=== PATIENT | male | born 1950 | race Caucasian/White ===

== ENCOUNTER → 2017-01-08 | Outpatient (CLI) | payer OTHER, MEDICARE ==
[2017-01-08 17:20] LABS: HEMOGLOBIN A1C 8.03 % (4.2-6.0); MEAN BLOOD GLUCOSE (CALC) 181.399 mg/dL
== END ==
LOC: MOB LAB 16:01
DX: E11.9 Type 2 diabetes mellitus without complications (principal); E29.1 Testicular hypofunction; I67.9 Cerebrovascular disease, unspecified; E55.9 Vitamin D deficiency, unspecified; G47.33 Obstructive sleep apnea (adult) (pediatric); E78.2 Mixed hyperlipidemia; I10 Essential (primary) hypertension; Z12.5 Encounter for screening for malignant neoplasm of prostate
CPT/HCPCS: 36415; 82306; 83036; 84403; G0103; G0463

== ENCOUNTER → 2017-04-22 | Outpatient (CLI) | payer OTHER, MEDICARE | LOC: MMPC 11:11 | DX: E29.1 Testicular hypofunction (principal) | CPT/HCPCS: G0463; J1071 ==

== ENCOUNTER → 2017-05-06 | Outpatient (CLI) | payer OTHER, MEDICARE | LOC: MMPC 11:11 | DX: E29.1 Testicular hypofunction (principal) | CPT/HCPCS: G0463; J1071 ==

== ENCOUNTER → 2017-05-21 | Outpatient (CLI) | payer OTHER, MEDICARE | LOC: MMPC 11:11 | DX: E29.1 Testicular hypofunction (principal) | CPT/HCPCS: G0463; J1071 ==

== ENCOUNTER → 2017-06-06 | Outpatient (CLI) | payer OTHER, MEDICARE | LOC: MMPC 11:11 | DX: E11.42 Type 2 diabetes mellitus with diabetic polyneuropathy (principal); I67.9 Cerebrovascular disease, unspecified; E78.2 Mixed hyperlipidemia; G47.33 Obstructive sleep apnea (adult) (pediatric); I10 Essential (primary) hypertension; F34.1 Dysthymic disorder; E66.09 Other obesity due to excess calories; E29.1 Testicular hypofunction | CPT/HCPCS: 99213; G0463 ==

== ENCOUNTER → 2017-06-10 | Outpatient (CLI) | payer OTHER, MEDICARE | LOC: MMPC 11:11 | DX: E29.1 Testicular hypofunction (principal) | CPT/HCPCS: G0463; J1071 ==

== ENCOUNTER → 2017-06-24 | Outpatient (CLI) | payer OTHER, MEDICARE | LOC: MMPC 11:11 | DX: E29.1 Testicular hypofunction (principal) | CPT/HCPCS: G0463; J1071 ==

== ENCOUNTER 2017-06-29 13:34 | Inpatient (IN) | payer OTHER, MEDICARE ==
[2017-06-29] MEDS ORDERED: Sodium Chloride 0.9% 1,000 ML PRIMARY IV ONE (13:40)
[2017-06-29] MEDS ORDERED: NORMAL SALINE 10 ML SYRINGE FLUSH IVP PRN ×2 (13:40→16:38)
[2017-06-29] MEDS ORDERED: ASPIRIN 81 MG (BABY) CHEWABLE TABLET PO ONE (13:40)
--- NOTE | 2017-06-29 13:43 | EKG ---
[address] [address] Measurements Intervals [place] Rate: 120 P: TN: 0 QRS: 67 QRSD: 81 T: 3 QT: 285 QTc: 356 Interpretive Statements ATRIAL FIBRILLATION WITH RAPID VENTRICULAR RESPONSE WITH ABERRANT CONDUCTION OR VENTRICULAR PREMATURE COMPLEXES NONSPECIFIC T-WAVE ABNORMALITY ABNORMAL RHYTHM ECG No previous ECG available for comparison Electronically Signed On 07-01-17 09:00:45 MDT by Darius Oconnell MD [email or web address]
[2017-06-29 14:04] LABS: BLOOD UREA NITROGEN 19 mg/dL (7-22); BUN/CREATININE RATIO 21.11 (6-20); EST GLOMERULAR FILTRATION > 60 (>60 ml/min/1.73m(2)); SERUM ALBUMIN 4.4 g/dL (3.5-4.8)
[2017-06-29 14:16] LABS: CREATINE KINASE MB 2.83 NG/ML (0.00-5.00)
[2017-06-29 14:17] LABS: TROPONIN I < 0.012 ng/mL (< 0.040)
[2017-06-29 14:26] LABS: BASOPHILS % (AUTO) 0.6 % (0-1); EOSINOPHILS % (AUTO) 1.3 % (0-8); HEMATOCRIT 51.8 % (42.0-52.0); MEAN CORPUSCULAR HEMOGLOBIN 31.6 PG (27-31); MEAN CORPUSCULAR HGB CONC 34.7 g/dL (33-37); MEAN CORPUSCULAR VOLUME 91 FL (80-90); MEAN PLATELET VOLUME 10.3 FL (7.4-12.2); MONOCYTES % (AUTO) 8.6 % (5-15); NEUTROPHILS % (AUTO) 72.4 % (50-80); RED BLOOD COUNT 5.69 10^6/uL (4.70-6.10)
[2017-06-29 14:27] LABS: BASOPHILS # (AUTO) 0.07 10*3/UL; EOSINOPHILS # (AUTO) 0.15 10*3/UL; LYMPHOCYTES # (AUTO) 1.96 10*3/uL; MONOCYTES # (AUTO) 1.01 10*3/UL (0.3-0.8); NEUTROPHILS # (AUTO) 8.46 10*3/UL; PLATELET MORPHOLOGY COMMENT NORMAL MORPHOLOGY (NORM); RBC MORPHOLOGY COMMENT NORMAL MORPHOLOGY (NORM); WBC MORPHOLOGY COMMENT SEE COMMENTS (NORM)
--- NOTE | 2017-06-29 15:18 | PDOC ---
Chest Pain HPI - General Chief Complaint: Chest Pain Stated Complaint: CHEST PAIN Date Seen by Provider: 06/29/17 Time Seen by Provider: 13:36 Source: Patient, Spouse Exam Limitations: POSITIVE: No limitations Treatment Prior to Arrival: REPORTS: None Nurse's Notes Reviewed & Considered: Yes - History of Present Illness Initial Comments: The patient is a 67-year-old male. He states that last night, around 8 PM, he developed "chest pressure". He states his chest pressure was not "bad". Onset of this was while he was driving. He slept fairly well through the night. Shortly after awakening he developed a sensation of "weakness and feeling like passing out". He also felt short of breath and sensed that his heart was beating "real fast". He also had some mild associated chest discomfort upon awakening. Body Location Affected: REPORTS: Chest Timing: REPORTS: Abrupt Duration: <24 hours Severity: Moderate Persistent/Worse since (date): 06/29/17 Persistent/Worse since (time): 06:00 Context: REPORTS: Rest Quality: REPORTS: Pressure Radiation: REPORTS: None Associated Symptoms: REPORTS: Shortness of Breath, Palpitations, Weakness Modifying Factors: improves with: None Reported Similar Symptoms Previously: No Recently seen/treated/hospitalized: No Any Prior Injuries Related to Current Complaint?: No - Patient Home Medications Home Medications: Home Medications Chlorthalidone 25 mg PO DAILY tab 06/21/15 Clopidogrel Bisulfate [Clopidogrel] 1 tab PO DAILY tab 06/21/15 Losartan Potassium 1 tab PO BID tab 06/21/15 Metformin HCl 1 tab PO BID tab 06/21/15 Blood Sugar Diagnostic [Precision Pcx Plus] 1 each IN TIDPC strip 09/04/16 Escitalopram Oxalate 1 tab PO DAILY tab 09/04/16 Lancets 1 each MC TIDPC each 09/04/16 Aspirin [Aspirin Ec] 1 tab PO QD #90 tab 10/09/16 Atorvastatin Calcium 1 tab PO QD #90 tab 10/09/16 Testosterone Cypionate 200 mg IM ASDIR #2 ml 01/18/17 Glipizide 1 tab PO QD #90 tab 04/08/17 - Patient Allergies Allergies/Adverse Reactions: Allergies Allergy/AdvReac Type Severity Reaction Status Date / Time No Known Allergies Allergy Verified 06/29/17 13:39 Past Medical History - heen HEENT History: Denies History Cardiovascular History: Denies History Additional Cardiovasular History: STATES HIS HEART HAS ALWAYS JUMPED AROUND Respiratory History: Denies History Gastrointestinal History: Denies History Genitourinary History: Denies History Endocrine History: Type 2 Diabetes (insulin) Average AM Blood Sugar: 130 Musculoskeletal History: Denies History Prosthesis or Implant: No Additional Musculoskeletal History: FUSIONS Neurological History: TIA Additional Neurological History: THATS WHY THEY PUT ME ON PLAVIX Blood Disorders: Denies History Psychiatric History: Depression History of Sexually Transmitted Diseases: No Male Reproductive History: Denies History Cancer History: Denies History In Past Year Been Physically Harmed or Verbally Threatened: No History of MDRO: No History of Other Communicable Diseases: No Tobacco Use: Never Smoker Alcohol Use: Rarely Type of alcohol normally used: Beer Substance Use Type: None Previous Surgical History: Yes Type / Date of Surgery: GB, APPY, BACK FUSIONS Anesthesia Reactions: No Malignant Hyperthermia: No Family History of Malignant Hyperthermia: No Significant Family History: Diabetes, Hypertension Past Medical History Reviewed: Reviewed - No Changes ROS - Limitations ROS Limitations: No Limitations Constitution: REPORTS: Denies Symptoms Cardiovascular: REPORTS: Chest Pain, Heart Racing, Heart Palpitations Respiratory: REPORTS: Denies Resp Symptoms Neurological: REPORTS: Denies Neuro Symptoms Gastrointestinal: REPORTS: Denies GI Symptoms Endocrine: REPORTS: Denies Symptoms Musculoskeletal: REPORTS: Denies MS Symptoms Genitourinary: REPORTS: Denies Symptoms Eyes: REPORTS: Denies Symptoms ENT: REPORTS: Denies Symptoms Skin: REPORTS: Denies Skin Symptoms Lympathic: REPORTS: Denies Lympathic Symptoms Immunologic: POSITIVE: Denies Symptoms Psychiatric: POSITIVE: Denies Psych Symptoms Chest Pain PE - General Appearance General Appearance: REPORTS: Alert, Cooperative, No Acute Distress, No Evidence of Trauma - HEENT HEENT: POSITIVE: Head Inspection Nml, Eyes Inspection Nml, Ears Inspection Nml, Nose Inspection Nml, Oral/Dental Inspect. Nml, Pharynx Inspect. Nml, PERRL, EOMI - Neck Neck: REPORTS: Normal Inspection, No Carotid Bruit - Respiratory Respiratory: REPORTS: No Respiratory Distress, Breath Sounds Normal, Chest Non- Tender - Cardiovascular Cardiovascular: REPORTS: Heart Sounds Normal, Equal Pulses, Strong Pulses, No Murmur, No Gallop, No Friction Rub, No JVD, Irregularly Irreg Rhythm, Tachycardia Peripheral Pulses: Radial (R): 2+, Radial (L): 2+ - Abdomen Abdomen: Soft: (All Quadrants), Normal Bowel Sounds: (All Quadrants), Denies Tenderness: (All Quadrants), No Splenomegaly: (All Quadrants), No Hepatomegaly: (All Quadrants), No Guarding: (All Quadrants), No Rebound: (All Quadrants), No Palpable Pulse: (All Quadrants), No Palpabale Mass: (All Quadrants), No Distention: (All Quadrants), No Rigidity: (All Quadrants) - Skin Skin: REPORTS: Intact, Normal For Race, Warm, Dry, No Rash - Extremities Extremity: Non-Tender: (All Extremities), Normal ROM: (All Extremities), Normal Inspection: (All Extremities) - Neurological / Psychological Neurological: POSITIVE: Oriented X3, 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 Chest Pain Progress - Results Reviewed by me Xrays/CTs/US Reviewed by me: Yes Discussed with Radiologist: No Radiology Findings: PA chest shows no definite abnormalities by my interpretation; radiologist interpretation pending. Lab Results Reviewed: Yes Lab Results:: Laboratory Results 06/29/17 Range/Units 13:51 WBC 11.68 H (4.8-10.8) 10^3/uL RBC 5.69 (4.70-6.10) 10^6/uL Hgb 18.0 (14.0-18.0) g/dL Hct 51.8 (42.0-52.0) % MCV 91 H (80-90) FL MCH 31.6 H (27-31) PG MCHC 34.7 (33-37) g/dL RDW Std Deviation 45 (39-50) fL RDW Coeff of Camryn 13.6 (11.5-14.5) % Plt Count 192 (140-350) 10*3/uL MPV 10.3 (7.4-12.2) FL Immature Gran % (Auto) 0.3 (0-5) % Neut % (Auto) 72.4 (50-80) % Lymph % (Auto) 16.8 (10-50) % [place] % (Auto) 8.6 (5-15) % Eos % (Auto) 1.3 (0-8) % Baso % (Auto) 0.6 (0-1) % Immature Gran # (Auto) 0.03 10*3/UL Neut # (Auto) 8.46 10*3/UL Lymph # (Auto) 1.96 10*3/uL [place] # (Auto) 1.01 H (0.3-0.8) 10*3/UL Eos # (Auto) 0.15 10*3/UL Baso # (Auto) 0.07 10*3/UL WBC Morphology Comment See comments (NORM) Plt Morphology Comment Normal morphology (NORM) RBC Morph Comment Normal morphology (NORM) PT 10.9 (9.7-11.4) secs INR 1.03 (0.00-5.90) N/A D-Dimer 0.25 (0.00-0.59) mg/L Sodium 140 (135-145) meq/L Potassium 3.9 (3.8-5.2) meq/L Chloride 100 (98-112) meq/L Carbon Dioxide 25 (23-33) meq/L Anion Gap 15 (5-20) BUN 19 (7-22) mg/dL Creatinine 0.9 (0.70-1.50) mg/dL Estimated GFR > 60 (>60 ml/min/1.73m(2)) BUN/Creatinine Ratio 21.11 H (6-20) Glucose 131 H (78-110) mg/dL Calculated Osmolality 293.0 H (267-292) mOsm/kg Calcium 10.0 (8.7-10.7) mg/dL Total Bilirubin 0.6 (0.3-1.2) mg/dL AST 30 (21-57) IU/L ALT 50 (21-72) IU/L Alkaline Phosphatase 45 (38-126) IU/L CK-MB (CK-2) 2.83 (0.00-5.00) NG/ML Troponin I < 0.012 (< 0.040) ng/mL Total Protein 7.2 (6.1-8.0) g/dL Albumin 4.4 (3.5-4.8) g/dL Globulin 2.8 (2.50-4.10) g/dL Albumin/Globulin Ratio 1.50 (1.3-2.0) mg/g EKG Interpreted/Reviewed By Me:: Yes (atrial fibrillation with ventricular response of around 130/m) EKG Interpretation:: POSITIVE: Normal Intervals, Normal [place], Normal QRS, Normal ST/T, Abnormal EKG (Atrial fibrillation) - Patient's Progress Pain Medication Addressed: POSITIVE: Not Applicable School/Work Release Addressed: POSITIVE: Not Applicable Re-Examine Time: 14:00 Re-Examine Comment: Atrial fibrillation with which the patient presented initially spontaneously resolved and converted to a normal sinus rhythm with fairly frequent unifocal ectopic beats. Patient states he feels much better after spontaneous conversion of his heart rate to normal sinus rhythm at a rate of around 90/m. Re-Examine Time:: 15:05 Re-Examine Comment: Results of laboratory tests chest x-ray and he is to electrocardiograms were discussed with patient and family. Advised to be admitted for further cardiac monitoring and evaluation. Case discussed with hospitalist, Dr. Starks, who has admitted the patient for further evaluation and treatment. Status: POSITIVE: Improved, Re-Examined Quality Measure Initiative: CP/AMI: POSITIVE: EKG, ASA - Consult Consult (If Yes, Name of Consulting MD & Time Called): Yes (Dr. Starks, hospitalist, [id number]) Consulting MD will see pt:: POSITIVE: [facility] Admit Counseled: POSITIVE: Patient, Family, RE: Lab Results, RE: Radiology Results, RE : DX, RE: Need for F/U Patient Care Time - Estimated PCT Patient Care Time (In Minutes): 50 Vital Signs - Recent Vital Signs Vital Signs: Vital Signs (Last 8 hours) Temp Pulse Pulse Pulse Resp Pulse Ox 06/29/17 13:56 97.9 F 136 H 136 H 20 94 06/29/17 13:35 124 H - VS Reviewed Vital Signs Reviewed: Yes Discharge Clinical Impression: Chest pain, Atrial fibrillation Condition: Fair Date Decision to Admit to Inpatient: 06/29/17 Time Decision to Admit to Inpatient: 15:00
[2017-06-29] MEDS ORDERED: ONDANSETRON 4 MG/2 ML VIAL IVP PRN (16:38)
[2017-06-29] MEDS ORDERED: LIDOCAINE W/ SODIUM BICARB 0.5 ML SYR SUBD PRN (16:38)
[2017-06-29] MEDS ORDERED: ACETAMINOPHEN 325 MG TABLET PO PRN (16:38)
--- NOTE | 2017-06-29 17:14 | PDOC ---
History and Physical - History of Present Illness Date and Time of Service: 06/29/2017, 1705 Chief Complaint: Lightheaded and chest pressure History of Present Illness: 0 very pleasant 67-year-old male who presents here accompanied by his with complaint of chest pressure and skipped heartbeats that started some time earlier this morning. He states that as he was walking through his falls, he felt a little lightheaded and felt like she was going to fall. He had to use his hands for balance. This is not normal for him and has not happened before. He does state that he's had skipped heartbeats occasionally where his heart will beat 3 times and then skip a beat and that has been going on for the last couple of years. He states that he had a transient ischemic attack treated by the emergency room physician in [place] about 3 years ago and he's been on Plavix since that time. He has underlying diabetes, hypertension, hypercholesterolemia, no family history, and has not smoked since he was age 31. He states that he felt some pressure in his chest yesterday that was nonexertional. Overall, the symptoms felt much better after he got to the emergency room, an IV was established, and the patient spontaneously converted to normal sinus rhythm and my discussion with emergency room physician. He's never been diagnosed with atrial fibrillation before. EKG confirmed atrial fibrillation. He has no known thyroid disease and he drinks about 4 cups of coffee per day, 2 large coffee mugs per day. No other exacerbating factors. Nothing seemed to make him worse. His initial workup showed normal enzymes. I will note the patient did think that the symptoms could've been from his blood sugar and he checked it but he stated that his blood sugar was fine at the time of his check. Past Medical History Medical History: 1. Diabetes mellitus type II, complicated by peripheral neuropathy. 2. Hypertension. 3. Hypercholesteremia. 4. Obstructive sleep apnea, on BiPAP and oxygen at night. 5. Testosterone deficiency, on testosterone. 6. History of transient ischemic attack, treated in [place] 3 years ago. Surgical History: Appendectomy. Cholecystectomy. Colonoscopy. Lasix Eye Surgery. Arthroscopic Knee Surgery (bilateral). Other neurologic surgery ( discectomy lower back). Septum Revision. Vertebral Fusion (c4-c5) Pertinent Family History: No known history of heart disease in the family. Past Social History: Quit smoking when he was 31, does not drink alcohol except for occasionally. for over 40 years. Has one child described as healthy. Lives here in [place] for the last year. Tobacco Use: Former Smoker Substance Use Type: None Alcohol Use: Occasionally Medication / Allergies Home Medications: Home Medications Medication Instructions Recorded Confirmed Type Chlorthalidone 25 mg PO DAILY tab 06/21/15 06/29/17 History Clopidogrel Bisulfate [Clopidogrel] 1 tab PO DAILY tab 06/21/15 06/29/17 History Losartan Potassium 1 tab PO BID tab 06/21/15 06/29/17 History Metformin HCl 1 tab PO BID tab 06/21/15 06/29/17 History Blood Sugar Diagnostic [Precision 1 each IN TIDPC strip 09/04/16 06/29/17 History Pcx Plus] Escitalopram Oxalate 1 tab PO DAILY tab 09/04/16 06/29/17 History Lancets 1 each MC TIDPC each 09/04/16 06/29/17 History Aspirin [Aspirin Ec] 1 tab PO QD #90 tab 10/09/16 06/29/17 Clinic Atorvastatin Calcium 1 tab PO QD #90 tab 10/09/16 06/29/17 Clinic Testosterone Cypionate 200 mg IM ASDIR #2 ml 01/18/17 06/29/17 Clinic Glipizide 1 tab PO QD #90 tab 04/08/17 06/29/17 Clinic Allergies/Adverse Reactions: Allergies Allergy/AdvReac Type Severity Reaction Status Date / Time No Known Allergies Allergy Verified 06/29/17 16:44 Review of Systems - Review of Systems All Systems: Reviewed & No Additional Complaints Except as Stated (I did a 12 point review systems and it was negative other than that discussed in the history of present illness and then noted below.) - Constitutional Constitutional: REPORTS: Other (No weight loss or gain) - Respiratory Respiratory: REPORTS: See HPI - Cardiovascular Cardiovascular: REPORTS: Other (Patient does state that he occasionally has heart rates ago in the 30s, but he's never had lightheadedness, dizziness, or diaphoresis from these.), See HPI - Musculoskeletal Musculoskeletal: REPORTS: Other (Generalized joint pains.) - Neurological Neurologic: REPORTS: Other (Peripheral neuropathy from diabetes.) Exam - Vitals Vital Signs: Vital Signs Temperature 97.6 F Temperature Source Oral Pulse Rate [Pulse Oximeter] 66 Pulse Rate 82 Respiratory Rate 16 Blood Pressure [Left Arm] 145/79 Blood Pressure 117/66 Pulse Ox 90 Oxygen Flow Rate 2 Oxygen Delivery Method Nasal Cannula Height 5 ft 10 in Weight 272 lb 4 oz - General General Appearance: POSITIVE: No Acute Distress, Cooperative, Obese - Head Head Exam: POSITIVE: Normal Inspection, Normocephalic, Atraumatic - Eye Eye Exam: POSITIVE: No Scleral Icterus - ENT ENT Exam: POSITIVE: Mucous Membranes Moist - Neck Neck Exam: POSITIVE: Normal Inspection, No Tenderness, No Thyromegaly - Respiratory Respiratory Exam: POSITIVE: Clear to Auscultation - Bilaterally, Breathing Non Labored, Normal to Percussion and Palpation - Cardiovascular Cardiovascular Exam: POSITIVE: No Murmur, No Clicks, No Gallops, No Rubs, Irregular Rhythm, No JVD - GI/Abdominal GI/Abdominal Exam: POSITIVE: Normal Bowel Sounds, Non Tender, Non Distended, Soft - Rectal Rectal Exam: POSITIVE: Deferred - External Exam: POSITIVE: Deferred Exam: POSITIVE: Deferred - Extremities Extremities Exam: POSITIVE: No Clubbing Present, No Edema Present, No Cyanosis Present - Back Back Exam: POSITIVE: Normal Inspection, No CVA Tenderness - Neurological Neurological Exam: POSITIVE: Alert, Oriented x 3, No Facial Droop, Speech Intact / Clear, Moves All Extremities Equally - Psychiatric Psychiatric Exam: POSITIVE: Normal Affect, Normal Mood - Integumentary Integumentary Exam: POSITIVE: Normal Color, Warm, Dry, Intact Results - Labs CBC and BMP: 06/29/17 13:51 06/29/17 13:51 Labs - Last 24 Hours: Laboratory Results 06/29/17 Range/Units 15:18 TSH 1.64 (0.2700-4.2000) uIU/mL Laboratory Results 06/29/17 06/29/17 Range/Units 13:51 15:18 WBC 11.68 H (4.8-10.8) 10^3/uL RBC 5.69 (4.70-6.10) 10^6/uL Hgb 18.0 (14.0-18.0) g/dL Hct 51.8 (42.0-52.0) % MCV 91 H (80-90) FL MCH 31.6 H (27-31) PG MCHC 34.7 (33-37) g/dL RDW Std Deviation 45 (39-50) fL RDW Coeff of Camryn 13.6 (11.5-14.5) % Plt Count 192 (140-350) 10*3/uL MPV 10.3 (7.4-12.2) FL Immature Gran % (Auto) 0.3 (0-5) % Neut % (Auto) 72.4 (50-80) % Lymph % (Auto) 16.8 (10-50) % [place] % (Auto) 8.6 (5-15) % Eos % (Auto) 1.3 (0-8) % Baso % (Auto) 0.6 (0-1) % Immature Gran # (Auto) 0.03 10*3/UL Neut # (Auto) 8.46 10*3/UL Lymph # (Auto) 1.96 10*3/uL [place] # (Auto) 1.01 H (0.3-0.8) 10*3/UL Eos # (Auto) 0.15 10*3/UL Baso # (Auto) 0.07 10*3/UL WBC Morphology Comment See comments (NORM) Plt Morphology Comment Normal morphology (NORM) RBC Morph Comment Normal morphology (NORM) PT 10.9 (9.7-11.4) secs INR 1.03 (0.00-5.90) N/A D-Dimer 0.25 (0.00-0.59) mg/L Sodium 140 (135-145) meq/L Potassium 3.9 (3.8-5.2) meq/L Chloride 100 (98-112) meq/L Carbon Dioxide 25 (23-33) meq/L Anion Gap 15 (5-20) BUN 19 (7-22) mg/dL Creatinine 0.9 (0.70-1.50) mg/dL Estimated GFR > 60 (>60 ml/min/1.73m(2)) BUN/Creatinine Ratio 21.11 H (6-20) Glucose 131 H (78-110) mg/dL Calculated Osmolality 293.0 H (267-292) mOsm/kg Calcium 10.0 (8.7-10.7) mg/dL Total Bilirubin 0.6 (0.3-1.2) mg/dL AST 30 (21-57) IU/L ALT 50 (21-72) IU/L Alkaline Phosphatase 45 (38-126) IU/L CK-MB (CK-2) 2.83 (0.00-5.00) NG/ML Troponin I < 0.012 (< 0.040) ng/mL Total Protein 7.2 (6.1-8.0) g/dL Albumin 4.4 (3.5-4.8) g/dL Globulin 2.8 (2.50-4.10) g/dL Albumin/Globulin Ratio 1.50 (1.3-2.0) mg/g TSH 1.64 (0.2700-4.2000) uIU/mL - EKG Data -: EKG Interpreted by Me Rate: Tachycardia - EKG Data EKG Interpretation: Other (Atrial fibrillation) - Imaging Status: Image Reviewed by Me (This is a portable view, no evidence of pneumonia. Heart appears enlarged but again portable view.) AFib Stroke Risk Screening - AFib Stroke Risk (CHADS-VASc) Atrial Fibrillation Ischemic Stroke Risk Factors: Age 65 to 74 years, Diabetes Mellitus, Stroke, TIA or TE CHADS-VASc Score (A-Fib Stroke Risk Score): 4 CHADS-VASc Risk: High Risk (The patient and I spoke in depth regarding Coumadin versus Xarelto versus Eliquis, including all risks and benefits, risks being bleeding complications and possible pitfalls of not being able to reverse bleeding with antidotes, and benefits cream treatment of blood clot, lack of drug interactions, and ease of therapy in terms of lab monitoring. The patient is going [facility] with the [facility] to see what's covered before he makes his decision. In the meantime we will use Lovenox for stroke prevention.) Assessment and Plan - Patient Problems (1) Atrial fibrillation Current Visit: Yes Status: Acute (2) Chest pain Current Visit: Yes Status: Acute (3) 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 (4) Hypertension Current Visit: Yes Status: Acute Qualifiers: Hypertension type: essential hypertension Qualified Description: Essential hypertension Qualifier Code(s): (I10) Essential (primary) hypertension (5) Hypercholesterolemia Current Visit: Yes Status: Acute (6) History of transient ischemic attack Current Visit: Yes Status: Acute (7) Testosterone deficiency Current Visit: Yes Status: Acute (8) Obstructive sleep apnea Current Visit: Yes Status: Acute - Assessment / Plan Additional Assessment/Plan Details: Admit the patient. Try to control heart rate with metoprolol, but watch for potential bradycardia as complication given his heart rate description in the 30s in the past. Stroke prevention, as mentioned above we discussed several medication options. For now Lovenox until the patient sees what will work for him [facility] Echocardiogram. Awaiting a T4 level. Check troponins later tonight and also in the morning. We discussed heart rate versus rhythm control for the atrial fibrillation. But we'll gauge just on symptoms. Eventual cardiology follow-up on the outpatient side, and sooner as we will be doing a stress test as well. I just spoke with our lead nuclear medicine technologist, and we will not be able to get any dosing medications until Saturday with our contracted vendors. We will try to do the stress test on Saturday and Saturday then. Sliding scale coverage in the hospital. Telemetry monitoring. Outpatient, he may need a Holter monitor or an event monitor study as well. The above plan was discussed with the patient and his and they agreed.
[2017-06-29] MEDS: ENOXAPARIN SODIUM 120 MG/0.8 ML SYRINGE SUBCUT SCH (17:28)
--- NOTE | 2017-06-29 18:07 | EKG ---
[address] [place] [address] Measurements Intervals [place] Rate: 94 P: 55 IN: 167 QRS: 58 QRSD: 81 T: 15 QT: 330 QTc: 381 Interpretive Statements SINUS RHYTHM WITH FREQUENT VENTRICULAR PREMATURE COMPLEXES POSSIBLE RIGHT ATRIAL ENLARGEMENT [0.25mV P WAVE] ABNORMAL RHYTHM ECG Compared to ECG 06/29/2017 13:37:53 Atrial fibrillation no longer present Aberrant conduction of supraventricular beat(s) no longer present T-wave abnormality no longer present Electronically Signed On 07-01-17 09:02:32 MDT by Darius Oconnell MD [id number]
[2017-06-29] MEDS ORDERED: Metoprolol TARTRATE Tab 25 MG TAB PO SCH (21:00)
[2017-06-29] MEDS: metFORMIN 500 MG TABLET PO SCH (21:04)
[2017-06-29] MEDS: ATORVASTATIN 20 MG TABLET PO SCH (21:05)
[2017-06-29] MEDS: Metoprolol TARTRATE Tab 25 MG TAB PO SCH (21:05)
[2017-06-29] MEDS: LOSARTAN 50 MG TABLET PO SCH (21:05)
[2017-06-30] MEDS: ENOXAPARIN SODIUM 120 MG/0.8 ML SYRINGE SUBCUT SCH ×2 (04:37→17:08)
[2017-06-30 05:47] LABS: BLOOD UREA NITROGEN 15 mg/dL (7-22); BUN/CREATININE RATIO 18.75 (6-20); CHOL/HDL RATIO 3.78 RATIO (0-4.0); EST GLOMERULAR FILTRATION > 60 (>60 ml/min/1.73m(2)); HDL CHOLESTEROL 23 mg/dL (40-150); SERUM CHOLESTEROL 87 mg/dL (120-200)
[2017-06-30 05:48] LABS: HEMOGLOBIN 16.6 g/dL (14.0-18.0); MEAN CORPUSCULAR HEMOGLOBIN 31.4 PG (27-31); MEAN CORPUSCULAR HGB CONC 33.9 g/dL (33-37); MEAN CORPUSCULAR VOLUME 92.6 FL (80-90); RED BLOOD COUNT 5.29 10^6/uL (4.70-6.10)
[2017-06-30 05:49] LABS: BASOPHILS % (AUTO) 0.5 % (0-1); EOSINOPHILS % (AUTO) 2.6 % (0-8); MEAN PLATELET VOLUME 10.7 FL (7.4-12.2); MONOCYTES # (AUTO) 1.08 10*3/UL (0.3-0.8); NEUTROPHILS # (AUTO) 5.63 10*3/UL; NEUTROPHILS % (AUTO) 57.2 % (50-80)
[2017-06-30 05:50] LABS: BASOPHILS # (AUTO) 0.05 10*3/UL; EOSINOPHILS # (AUTO) 0.26 10*3/UL; PLATELET MORPHOLOGY COMMENT NORMAL MORPHOLOGY (NORM); RBC MORPHOLOGY COMMENT NORMAL MORPHOLOGY (NORM); WBC MORPHOLOGY COMMENT NORMAL MORPHOLOGY (NORM)
[2017-06-30 06:02] LABS: HEMOGLOBIN A1C 6.33 % (4.2-6.0)
[2017-06-30] MEDS ORDERED: CHLORTHALIDONE 50 MG TABLET PO SCH (09:00)
[2017-06-30] MEDS: Metoprolol TARTRATE Tab 25 MG TAB PO SCH ×2 (09:33→21:16)
[2017-06-30] MEDS: ESCITALOPRAM 10 MG TABLET PO SCH (09:34)
[2017-06-30] MEDS: ASPIRIN EC 81 MG TABLET PO SCH (09:34)
[2017-06-30] MEDS: LOSARTAN 50 MG TABLET PO SCH ×2 (09:34→21:26)
[2017-06-30] MEDS: metFORMIN 500 MG TABLET PO SCH ×2 (09:34→21:27)
[2017-06-30] MEDS ORDERED: Glucagon Inj Vial 1 MG/ML VIAL IM PRN (13:59)
[2017-06-30] MEDS ORDERED: DEXTROSE 50%-WATER SYRINGE 50 ML SYRINGE IVP PRN (13:59)
[2017-06-30] MEDS ORDERED: DEXTROSE 31 GM GEL PO PRN (13:59)
[2017-06-30] MEDS ORDERED: Insulin Sliding Scale Protocol SUBCUT PRN (13:59)
--- NOTE | 2017-06-30 14:09 | PDOC(PROG) ---
Date and Time of Service: 06/30/2017, 1305 Interval History: no chest pain, had some nausea though. no vomiting and no shortness of breath. The patient states he sweats frequently at night. no lymph node inflammation. Has been going on past two years. Objective : Data - Labs CBC and BMP: 06/30/17 04:20 06/30/17 04:20 Labs - Last 24 Hours: Laboratory Results 06/29/17 06/29/17 06/29/17 Range/Units 15:18 16:38 17:21 WBC (4.8-10.8) 10^3/uL RBC (4.70-6.10) 10^6/uL Hgb (14.0-18.0) g/dL Hct (42.0-52.0) % MCV (80-90) FL MCH (27-31) PG MCHC (33-37) g/dL RDW Std Deviation (39-50) fL RDW Coeff of Camryn (11.5-14.5) % Plt Count (140-350) 10*3/uL MPV (7.4-12.2) FL Immature Gran % (Auto) (0-5) % Neut % (Auto) (50-80) % Lymph % (Auto) (10-50) % Rush % (Auto) (5-15) % Eos % (Auto) (0-8) % Baso % (Auto) (0-1) % Immature Gran # (Auto) 10*3/UL Neut # (Auto) 10*3/UL Lymph # (Auto) 10*3/uL Rush # (Auto) (0.3-0.8) 10*3/UL Eos # (Auto) 10*3/UL Baso # (Auto) 10*3/UL WBC Morphology Comment (NORM) Plt Morphology Comment (NORM) RBC Morph Comment (NORM) Sodium (135-145) meq/L Potassium (3.8-5.2) meq/L Chloride (98-112) meq/L Carbon Dioxide (23-33) meq/L Anion Gap (5-20) BUN (7-22) mg/dL Creatinine (0.70-1.50) mg/dL Estimated GFR (>60 ml/min/1.73m(2)) BUN/Creatinine Ratio (6-20) Glucose (78-110) mg/dL Mean Blood Glucose mg/dL Hemoglobin A1c (4.2-6.0) % Calculated Osmolality (267-292) mOsm/kg Calcium (8.7-10.7) mg/dL Troponin I < 0.012 (< 0.040) ng/mL Triglycerides (44-200) mg/dL Cholesterol (120-200) mg/dL LDL Cholesterol, Calc mg/dL VLDL Cholesterol (0-40) mg/dL HDL Cholesterol (40-150) mg/dL Cholesterol/HDL Ratio (0-4.0) RATIO TSH 1.64 (0.2700-4.2000) uIU/mL Free T4 0.72 L (0.93-1.71) ng/dL 06/30/17 Range/Units 04:20 WBC 9.85 (4.8-10.8) 10^3/uL RBC 5.29 (4.70-6.10) 10^6/uL Hgb 16.6 (14.0-18.0) g/dL Hct 49.0 (42.0-52.0) % MCV 92.6 H (80-90) FL MCH 31.4 H (27-31) PG MCHC 33.9 (33-37) g/dL RDW Std Deviation 45.6 (39-50) fL RDW Coeff of Camryn 13.6 (11.5-14.5) % Plt Count 181 (140-350) 10*3/uL MPV 10.7 (7.4-12.2) FL Immature Gran % (Auto) 0.3 (0-5) % Neut % (Auto) 57.2 (50-80) % Lymph % (Auto) 28.4 (10-50) % Rush % (Auto) 11.0 (5-15) % Eos % (Auto) 2.6 (0-8) % Baso % (Auto) 0.5 (0-1) % Immature Gran # (Auto) 0.03 10*3/UL Neut # (Auto) 5.63 10*3/UL Lymph # (Auto) 2.80 10*3/uL Rush # (Auto) 1.08 H (0.3-0.8) 10*3/UL Eos # (Auto) 0.26 10*3/UL Baso # (Auto) 0.05 10*3/UL WBC Morphology Comment Normal morphology (NORM) Plt Morphology Comment Normal morphology (NORM) RBC Morph Comment Normal morphology (NORM) Sodium 137 (135-145) meq/L Potassium 3.6 L (3.8-5.2) meq/L Chloride 99 (98-112) meq/L Carbon Dioxide 28 (23-33) meq/L Anion Gap 10 (5-20) BUN 15 (7-22) mg/dL Creatinine 0.8 (0.70-1.50) mg/dL Estimated GFR > 60 (>60 ml/min/1.73m(2)) BUN/Creatinine Ratio 18.75 (6-20) Glucose 98 (78-110) mg/dL Mean Blood Glucose 124.789 mg/dL Hemoglobin A1c 6.33 H (4.2-6.0) % Calculated Osmolality 284.0 (267-292) mOsm/kg Calcium 9.0 (8.7-10.7) mg/dL Troponin I < 0.012 (< 0.040) ng/mL Triglycerides 281 H (44-200) mg/dL Cholesterol 87 L (120-200) mg/dL LDL Cholesterol, Calc 7.800 mg/dL VLDL Cholesterol 56 H (0-40) mg/dL HDL Cholesterol 23 L (40-150) mg/dL Cholesterol/HDL Ratio 3.78 (0-4.0) RATIO TSH (0.2700-4.2000) uIU/mL Free T4 (0.93-1.71) ng/dL Objective : Exam - General General Appearance: No Acute Distress, Cooperative Additional General Exam Details: Vital Signs - Last Taken Temperature 97.5 F 06/30/17 12:23 Pulse Rate 54 L 06/30/17 12:23 Respiratory Rate 20 06/30/17 12:23 Blood Pressure 133/72 06/30/17 12:23 Pulse Ox 95 06/30/17 12:23 no axillary, cervical, or groin lymphadenopathy. - Eye Eye Exam: No Scleral Icterus - ENT ENT Exam: Mucous Membranes Moist - Respiratory Respiratory Exam: Clear to Auscultation - Bilaterally, Breathing Non Labored - Cardiovascular Cardiovascular Exam: No Murmur, No Clicks, No Gallops, No Rubs, Bradycardia - GI/Abdominal GI/Abdominal Exam: Normal Bowel Sounds, Non Tender, Non Distended, Soft - Extremities Extremities Exam: No Clubbing Present, No Edema Present, No Cyanosis Present - Neurological Neurological Exam: Alert, Oriented x 3, No Facial Droop, Speech Intact / Clear, Moves All Extremities Equally Assessment and Plan - Patient Problems (1) Atrial fibrillation Current Visit: Yes Status: Acute (2) Chest pain Current Visit: Yes Status: Acute (3) Night sweats Current Visit: Yes Status: Acute (4) 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 (5) Hypertension Current Visit: Yes Status: Acute Qualifiers: Hypertension type: essential hypertension Qualified Description: Essential hypertension Qualifier Code(s): (I10) Essential (primary) hypertension (6) Hypercholesterolemia Current Visit: Yes Status: Acute (7) History of transient ischemic attack Current Visit: Yes Status: Acute (8) Testosterone deficiency Current Visit: Yes Status: Acute (9) Obstructive sleep apnea Current Visit: Yes Status: Acute - Assessment / Plan Additional Assessment/Plan Details: no evidence of KS, but given A-fib, symptoms, I think stress test is necessary. We should have tracer tomorrow available. ECHO tomorrow (I discussed with [employer] tech) continue beta christina at lower dose for rate control. decrease chlorthalidone for avoidance of hypotension--this could mask hypoglycemia, so must use with caution lovenox for now in case stress test is positive. patient still evaluating if eliquis will work for him cost zelaya. for night sweats, thyroid function is normal, could be nocturnal hypoglycemia ( may warrant continuous glucose monitoring) no lymphadenopathy get electrophoresis studies with these night sweats. discussed with patient and his family. They all agree with the plan.
[2017-06-30] MEDS: Insulin Lispro Flexpen 300 UNIT/3 ML INSULN.PEN SUBCUT SCH (16:58)
[2017-06-30] MEDS: ATORVASTATIN 20 MG TABLET PO SCH (21:27)
[2017-07-01] MEDS: ENOXAPARIN SODIUM 120 MG/0.8 ML SYRINGE SUBCUT SCH (04:42)
[2017-07-01] MEDS: Insulin Lispro Flexpen 300 UNIT/3 ML INSULN.PEN SUBCUT SCH ×2 (07:46→11:36)
[2017-07-01] MEDS: ASPIRIN EC 81 MG TABLET PO SCH (08:51)
[2017-07-01] MEDS: ESCITALOPRAM 10 MG TABLET PO SCH (08:51)
[2017-07-01] MEDS: LOSARTAN 50 MG TABLET PO SCH ×2 (08:51→20:57)
[2017-07-01] MEDS: Metoprolol TARTRATE Tab 25 MG TAB PO SCH ×2 (09:05→22:43)
[2017-07-01] MEDS: metFORMIN 500 MG TABLET PO SCH ×2 (09:07→20:57)
[2017-07-01] MEDS: CHLORTHALIDONE 50 MG TABLET PO SCH (09:08)
--- NOTE | 2017-07-01 13:53 | PDOC(PROG) ---
Interval History: Patient is doing well no complaints no chest pain no nausea no vomiting atrial fibrillation is controlled and patient is in sinus Objective : Data - Labs CBC and BMP: 06/30/17 04:20 06/30/17 04:20 Objective : Exam - General General Appearance: Cooperative - Cardiovascular Cardiovascular Exam: RRR, No Murmur, No Clicks - GI/Abdominal GI/Abdominal Exam: Normal Bowel Sounds, Non Tender, Soft - Extremities Extremities Exam: No Clubbing Present, No Edema Present - Neurological Neurological Exam: Alert, Oriented x 3, CN II-XII Intact Assessment and Plan - Patient Problems (1) Atrial fibrillation Current Visit: Yes Status: Acute (2) Chest pain Current Visit: Yes Status: Acute (3) Hypertension Current Visit: Yes Status: Acute Qualifiers: Hypertension type: essential hypertension Qualified Description: Essential hypertension Qualifier Code(s): (I10) Essential (primary) hypertension (4) 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 fib RVR controlled at present time patient converted we discussed anticoagulation with Mel he agrees a stress test is pending he will get his resting tonight and stress part in the morning. Also discussed case with his primary care physician Dr. Zaldivar #2 diabetes continue metformin. Sliding scale #3 hypertension echo report was called verbally shows LVH
[2017-07-01] MEDS: ATORVASTATIN 20 MG TABLET PO SCH (20:57)
[2017-07-01] MEDS: Apixaban 5 MG TABLET PO SCH (20:57)
--- NOTE | 2017-07-02 06:31 | DI ---
XR CXR 1VW,06/29/2017 1:40 PM: Clinical History: Chest pain Previous Exam: None at this facility. Findings: A single frontal radiograph of the chest is obtained, and demonstrates cardiomegaly. Postsurgical changes are seen at the base of the neck. There is no infiltrate nor effusion. Mild degenerative changes are seen of the acromioclavicular joint. Impression: Cardiomegaly otherwise unremarkable.
[2017-07-02] MEDS: Metoprolol TARTRATE Tab 25 MG TAB PO SCH (08:41)
[2017-07-02] MEDS: ASPIRIN EC 81 MG TABLET PO SCH (08:41)
[2017-07-02] MEDS: metFORMIN 500 MG TABLET PO SCH (08:41)
[2017-07-02] MEDS: LOSARTAN 50 MG TABLET PO SCH (08:41)
[2017-07-02] MEDS: ESCITALOPRAM 10 MG TABLET PO SCH (08:41)
[2017-07-02] MEDS: Apixaban 5 MG TABLET PO SCH (08:41)
--- NOTE | 2017-07-02 08:41 | STRESSTEST ---
[facility] Interpretive Statements This 67 y.o. male is referred by Hospitalist team for episode of chest pain and atrail fib with RVR. Risk factors include prior smoking (none for 30+ years), DM2, hypertension, and hyperlipidemia. He has a history of a TIA, and also has a history of LILLIANA on Bipap. Recent Echo shows LVH and today''s resting ECG suggests JERED with NSR. There were frequent VPCs or aberrently conducted APCs and some APCs (narrow complexs) but no recurrance of atrial fib. Normal B/P response and no hypoxia. PLAN: Review images. [email or web address]
[2017-07-02] MEDS ORDERED: AmLODIPine Tab 5 MG TABLET PO SCH (09:00)
--- NOTE | 2017-07-02 09:04 | EKG ---
[address] [address] Measurements Intervals Bernard Rate: 92 P: OK: 0 QRS: 69 QRSD: 86 T: 36 QT: 346 QTc: 396 Interpretive Statements ATRIAL FIBRILLATION ABNORMAL RHYTHM ECG Compared to ECG 06/29/2017 13:56:00 Sinus rhythm no longer present Ventricular premature complex(es) no longer present Electronically Signed On 07-02-17 14:33:30 MDT by Aneesh Ford [email or web address]
[2017-07-02 11:58] VITALS: RESP 18; TEMP 97.6
--- NOTE | 2017-07-02 12:16 | DCSUMMARY ---
Hospitalization Summary Hospital Course: Final Discharge Diagnosis: Current Visit Problems Problem Status Priority Diagnosed Code Atrial fibrillation Acute I48.91 Chest pain Acute R07.9 History of transient ischemic attack Acute Z86.73 Hypercholesterolemia Acute E78.00 Hypertension Acute I10 Night sweats Acute R61 Obstructive sleep apnea Acute G47.33 Testosterone deficiency Acute E29.1 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 Acute Diagnostic Data, Laboratory Data, and Procedures of Signifigance: Laboratory Results 06/29/17 06/29/17 06/29/17 Range/Units 13:51 15:18 16:38 WBC 11.68 H (4.8-10.8) 10^3/uL RBC 5.69 (4.70-6.10) 10^6/uL Hgb 18.0 (14.0-18.0) g/dL Hct 51.8 (42.0-52.0) % MCV 91 H (80-90) FL MCH 31.6 H (27-31) PG MCHC 34.7 (33-37) g/dL RDW Std Deviation 45 (39-50) fL RDW Coeff of Camryn 13.6 (11.5-14.5) % Plt Count 192 (140-350) 10*3/uL MPV 10.3 (7.4-12.2) FL Immature Gran % (Auto) 0.3 (0-5) % Neut % (Auto) 72.4 (50-80) % Lymph % (Auto) 16.8 (10-50) % Hidalgo % (Auto) 8.6 (5-15) % Eos % (Auto) 1.3 (0-8) % Baso % (Auto) 0.6 (0-1) % Immature Gran # (Auto) 0.03 10*3/UL Neut # (Auto) 8.46 10*3/UL Lymph # (Auto) 1.96 10*3/uL Hidalgo # (Auto) 1.01 H (0.3-0.8) 10*3/UL Eos # (Auto) 0.15 10*3/UL Baso # (Auto) 0.07 10*3/UL WBC Morphology Comment See comments (NORM) Plt Morphology Comment Normal morphology (NORM) RBC Morph Comment Normal morphology (NORM) PT 10.9 (9.7-11.4) secs INR 1.03 (0.00-5.90) N/A D-Dimer 0.25 (0.00-0.59) mg/L Sodium 140 (135-145) meq/L Potassium 3.9 (3.8-5.2) meq/L Chloride 100 (98-112) meq/L Carbon Dioxide 25 (23-33) meq/L Anion Gap 15 (5-20) BUN 19 (7-22) mg/dL Creatinine 0.9 (0.70-1.50) mg/dL Estimated GFR > 60 (>60 ml/min/1.73m(2)) BUN/Creatinine Ratio 21.11 H (6-20) Glucose 131 H (78-110) mg/dL Mean Blood Glucose mg/dL Hemoglobin A1c (4.2-6.0) % Calculated Osmolality 293.0 H (267-292) mOsm/kg Calcium 10.0 (8.7-10.7) mg/dL Magnesium (1.6-2.4) mg/dL Total Bilirubin 0.6 (0.3-1.2) mg/dL AST 30 (21-57) IU/L ALT 50 (21-72) IU/L Alkaline Phosphatase 45 (38-126) IU/L CK-MB (CK-2) 2.83 (0.00-5.00) NG/ML Troponin I < 0.012 (< 0.040) ng/mL Total Protein 7.2 (6.1-8.0) g/dL Albumin 4.4 (3.5-4.8) g/dL Globulin 2.8 (2.50-4.10) g/dL Albumin/Globulin Ratio 1.50 (1.3-2.0) mg/g Triglycerides (44-200) mg/dL Cholesterol (120-200) mg/dL LDL Cholesterol, Calc mg/dL VLDL Cholesterol (0-40) mg/dL HDL Cholesterol (40-150) mg/dL Cholesterol/HDL Ratio (0-4.0) RATIO TSH 1.64 (0.2700-4.2000) uIU/mL Free T4 0.72 L (0.93-1.71) ng/dL 06/29/17 06/30/17 07/02/17 Range/Units 17:21 04:20 10:20 WBC 9.85 (4.8-10.8) 10^3/uL RBC 5.29 (4.70-6.10) 10^6/uL Hgb 16.6 (14.0-18.0) g/dL Hct 49.0 (42.0-52.0) % MCV 92.6 H (80-90) FL MCH 31.4 H (27-31) PG MCHC 33.9 (33-37) g/dL RDW Std Deviation 45.6 (39-50) fL RDW Coeff of Camryn 13.6 (11.5-14.5) % Plt Count 181 (140-350) 10*3/uL MPV 10.7 (7.4-12.2) FL Immature Gran % (Auto) 0.3 (0-5) % Neut % (Auto) 57.2 (50-80) % Lymph % (Auto) 28.4 (10-50) % Hidalgo % (Auto) 11.0 (5-15) % Eos % (Auto) 2.6 (0-8) % Baso % (Auto) 0.5 (0-1) % Immature Gran # (Auto) 0.03 10*3/UL Neut # (Auto) 5.63 10*3/UL Lymph # (Auto) 2.80 10*3/uL Hidalgo # (Auto) 1.08 H (0.3-0.8) 10*3/UL Eos # (Auto) 0.26 10*3/UL Baso # (Auto) 0.05 10*3/UL WBC Morphology Comment Normal morphology (NORM) Plt Morphology Comment Normal morphology (NORM) RBC Morph Comment Normal morphology (NORM) PT (9.7-11.4) secs INR (0.00-5.90) N/A D-Dimer (0.00-0.59) mg/L Sodium 137 (135-145) meq/L Potassium 3.6 L (3.8-5.2) meq/L Chloride 99 (98-112) meq/L Carbon Dioxide 28 (23-33) meq/L Anion Gap 10 (5-20) BUN 15 (7-22) mg/dL Creatinine 0.8 (0.70-1.50) mg/dL Estimated GFR > 60 (>60 ml/min/1.73m(2)) BUN/Creatinine Ratio 18.75 (6-20) Glucose 98 (78-110) mg/dL Mean Blood Glucose 124.789 mg/dL Hemoglobin A1c 6.33 H (4.2-6.0) % Calculated Osmolality 284.0 (267-292) mOsm/kg Calcium 9.0 (8.7-10.7) mg/dL Magnesium 1.9 (1.6-2.4) mg/dL Total Bilirubin (0.3-1.2) mg/dL AST (21-57) IU/L ALT (21-72) IU/L Alkaline Phosphatase (38-126) IU/L CK-MB (CK-2) (0.00-5.00) NG/ML Troponin I < 0.012 < 0.012 (< 0.040) ng/mL Total Protein (6.1-8.0) g/dL Albumin (3.5-4.8) g/dL Globulin (2.50-4.10) g/dL Albumin/Globulin Ratio (1.3-2.0) mg/g Triglycerides 281 H (44-200) mg/dL Cholesterol 87 L (120-200) mg/dL LDL Cholesterol, Calc 7.800 mg/dL VLDL Cholesterol 56 H (0-40) mg/dL HDL Cholesterol 23 L (40-150) mg/dL Cholesterol/HDL Ratio 3.78 (0-4.0) RATIO TSH (0.2700-4.2000) uIU/mL Free T4 (0.93-1.71) ng/dL History and Physical pertinent to Admission: Course of Hospitalization: This very nice 67-year-old gentleman who comes in with A. fib RVR was treated with anticoagulation and beta blockers patient converted. He also had a stress test which we are awaiting results for. He did go back into A. fib with a bowel movement but compared to right back to sinus echo verbal report showed no abnormalities and we had a long discussion about anticoagulation with primary care physician as well. Patient will be on Eliquis and he had some free samples from his primary care physician brought him down. He will follow up with primary care and cardiology Stress test was negative On the date of discharge, the patient was examined: Gen.: No acute distress, alert, nontoxic Heart: Regular rate and rhythm, no murmurs, clicks, gallops, or rubs Lungs: Clear to auscultation bilaterally, breathing is nonlabored Abdomen/GI: Normal tones on auscultation, soft, nontender, nondistended Musculoskeletal/extremities: No clubbing, cyanosis, or edema Vitals reviewed and are listed below Assessment and Plan: 1. As per discharge assessments above 2. Disposition: Home 3. Condition on discharge, stable and improved. 4. Diet: regular diet 5. Activities: resume normal activities 6. Follow-Up: 1. PCP 2. 7. Medications at the Time of Discharge: Home Medications Medication Instructions Recorded Confirmed Type Chlorthalidone 25 mg PO DAILY tab 06/21/15 06/29/17 History Losartan Potassium 1 tab PO BID tab 06/21/15 06/29/17 History Metformin HCl 1 tab PO BID tab 06/21/15 06/29/17 History Blood Sugar Diagnostic [Precision 1 each IN TIDPC strip 09/04/16 06/29/17 History Pcx Plus] Escitalopram Oxalate 1 tab PO DAILY tab 09/04/16 06/29/17 History Lancets 1 each MC TIDPC each 09/04/16 06/29/17 History Aspirin [Aspirin EC] 1 tab PO QD #90 tab 10/09/16 06/29/17 Clinic Atorvastatin Calcium 1 tab PO QD #90 tab 10/09/16 06/29/17 Clinic Testosterone Cypionate 200 mg IM ASDIR #2 ml 01/18/17 06/29/17 Clinic Glipizide 1 tab PO QD #90 tab 04/08/17 06/29/17 Clinic Apixaban [Eliquis] 5 mg PO BID #60 tablet 07/02/17 Rx Metoprolol Tartrate Tab 12.5 mg PO BID #60 tab 07/02/17 Rx [Lopressor Tab] 8. Time, care, counseling and coordination of care for this discharge is greater than 30 minutes. Exam - Vitals Vital Signs: Vital Signs Temperature 97.6 F Temperature Source Temporal Artery Scan Pulse Rate [Apical] 55 Pulse Rate [Pulse Oximeter] 55 Pulse Rate 64 Respiratory Rate 18 Blood Pressure [Left Arm] 132/66 Blood Pressure 117/66 Pulse Ox 92 Oxygen Flow Rate 3 Oxygen Delivery Method Room Air Height 5 ft 10 in Weight 118.388 kg Patient Problems - Patient Problem List (1) Atrial fibrillation Current Visit: Yes Status: Acute (2) Chest pain Current Visit: Yes Status: Acute (3) Hypertension Current Visit: Yes Status: Acute Qualifiers: Hypertension type: essential hypertension Qualified Description: Essential hypertension Qualifier Code(s): (I10) Essential (primary) hypertension (4) 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
--- NOTE | 2017-07-02 12:27 | DI ---
2 DAY LEXISCAN STRESS & REST MYOCARDIAL PERFUSION SCANS, 07/01/2017 5:02 PM : Clinical History: Chest pain and atrial fibrillation. Previous Exam: None at this facility. The patient was stressed by Dr. Rodriguez The standard Lexiscan protocol was used. Please see the Doctor's report. At the designated time, 34.9 mCi of 99Tc-sestimibi was injected IV. Stress gated tomograms were acquired within one hour of the i njection. For the resting scans, 33.3 mCi was injected IV and resting gated tomograms were acquired in similar fashion. Stress scans were performed on July 01, 2017; the resting scans were performed on July 02, 2017. Quantitative and qualitative analyses were performed. Quantitative analysis was performed with the [place] [facility] [id number] protocols. Very low dose limited CT scans of the chest are o btained through the level of the heart for attenuation correction of the gated stress and rest cardia c SPECT data. Non-attenuated and attenuated scans were processed for review, and the attenuated scans were used for final interpretation of this study. Review of the raw data images and quality control lab tech files indicate that these series of examinations ar e of good quality. There were 19% rejected beats due to some runs of atrial fibrillation and a few PV Cs. Stress and rest left ventricular chamber sizes are normal. Stress and rest LVEF are 56 % and 64 %, r espectively. There is no evidence of ischemia. Wall motion is normal, and ejection fraction is within normal limits. Transient ischemic dilatation ratio is 0.96, with a normal range up to 1.22 for patients str essed with the Tien protocol and up to 1.33 for patients stressed with the Lexiscan protocol. The very low dose CT scans through the level of the heart demonstrate several coronary artery calcifi cations. There is some subsegmental atelectasis in the lung bases. There is no adenopathy. There are few calcified granulomas identified. Readin. No evidence of ischemia. 2. Normal wall motion and normal ejection fraction.
[2017-07-02] MEDS: CHLORTHALIDONE 50 MG TABLET PO SCH (12:33)
[2017-07-03] MEDS ORDERED: CHLORTHALIDONE 25 MG PO SCH (09:00)
== END 2017-07-02 15:06 | disposition home or self-care (01) | DRG 310 ==
LOC: ER 13:34 → MED/SURG 15:11
PROVIDERS: ADMIT Family Medicine; ATTEND Family Medicine
DX: I48.91 Unspecified atrial fibrillation (principal); R07.9 Chest pain, unspecified; I10 Essential (primary) hypertension; E11.43 Type 2 diabetes mellitus with diabetic autonomic (poly)neuropathy; E78.00 Pure hypercholesterolemia, unspecified; R61 Generalized hyperhidrosis; G47.33 Obstructive sleep apnea (adult) (pediatric); E29.1 Testicular hypofunction
CPT/HCPCS: 36415; 71010; 78452; 80048; 80053; 80061; 82553; 82948; 83036; 83735; 84439; 84443; 84484; 85025; 85379; 85610; 93005; 93010; 93016; 93017; 93018; 93306; 94761; 99284; J7030